=== PATIENT | male | born 1950 | race Caucasian/White ===

== ENCOUNTER 2024-03-25 01:58 | Inpatient (IN) | payer MEDICARE, MEDICAID ==
[~2024-03-25] VITALS: Ht 172.7 cm; Wt 106.1 kg
[2024-03-25 02:34] LABS: EOSINOPHILS % 4.4 % (0.0-5.0); HEMATOCRIT. 41.1 % (42.0-52.0); HEMOGLOBIN. 13.3 g/dL (14.0-18.0); MEAN CORPUSCULAR HEMOGLOBIN 27.8 pg (28.0-32.0); MEAN CORPUSCULAR HGB CONC 32.4 g/dL (31.0-37.0); MEAN CORPUSCULAR VOLUME 85.7 fL (80.0-94.0); MEAN PLATELET VOLUME 8.5 fl (7.4-10.4); MONOCYTES % 8.4 % (2.0-8.0); NEUTROPHILS % 69.2 % (40.0-76.0); PLATELET 286 x1000/uL (130-400); RED CELL DISTRIBUTION WIDTH 15.5 % (11.6-14.6); WHITE BLOOD COUNT 10.9 x1000/uL (4.5-11.0)
[2024-03-25 02:45] LABS: CHLORIDE 100 mEq/L (98-107); POTASSIUM 3.6 mEq/L (3.5-5.1); SODIUM 137 mEq/L (136-145)
[2024-03-25 02:46] LABS: CARBON DIOXIDE 27 mEq/L (21-32)
[2024-03-25 02:47] LABS: CALCIUM 9.1 mg/dL (8.7-10.4)
[2024-03-25 02:51] LABS: CREATININE 0.9 mg/dL (0.6-1.3); GLUCOSE 216 mg/dL (70-105); UREA NITROGEN BLOOD 14 mg/dL (9-23)
[2024-03-25 02:52] LABS: TROPONIN I HIGH SENSITIVITY 30 ng/L (3.0-53)
[2024-03-25 03:00] LABS: ETHANOL BLOOD < 10 mg/dL (<10)
[2024-03-25 03:10] LABS: PARTIAL THROMBOPLASTIN TIME 26.8 sec (23.4-31.0); PROTHROMBIN TIME 10.9 sec (9.6-11.0)
[2024-03-25] MEDS: ASPIRIN 325MG EC TABLET PO NR (03:39)
[2024-03-25] MEDS ORDERED: GUAIFENESIN 200MG/10ML SUGAR FREE UDC PO PRN (05:30)
[2024-03-25] MEDS ORDERED: IPRATROPIUM/ALBUTEROL 0.5-3(2.5)MG/3ML NEB HHN PRN (05:30)
[2024-03-25] MEDS ORDERED: ONDANSETRON HCL 4MG/2ML INJ IV PRN (05:30)
[2024-03-25] MEDS ORDERED: DOCUSATE SODIUM 100MG CAPSULE PO PRN (05:30)
[2024-03-25] MEDS ORDERED: CLONIDINE 0.1MG TABLET PO PRN (05:30)
[2024-03-25] MEDS ORDERED: ACETAMINOPHEN 325MG TABLET PO PRN ×2 (05:30)
[2024-03-25] MEDS ORDERED: MAGNESIUM/ALUMINUM HYDROXIDE/SIMETHICONE 30ML UDC PO PRN (05:30)
[2024-03-25] MEDS ORDERED: DEXTROSE 50% WATER 50ML SYRINGE IV PRN (05:45)
[2024-03-25] MEDS ORDERED: HYDRALAZINE 20MG/ML VIAL IV PRN (06:00)
[2024-03-25] MEDS ORDERED: NALOXONE HCL 0.4MG/ML VIAL IV PRN (06:15)
[2024-03-25 07:10] LABS: CHLORIDE 100 mEq/L (98-107); POTASSIUM 4.1 mEq/L (3.5-5.1); SODIUM 138 mEq/L (136-145)
[2024-03-25 07:11] LABS: CARBON DIOXIDE 29 mEq/L (21-32)
[2024-03-25 07:12] LABS: CALCIUM 9.1 mg/dL (8.7-10.4)
[2024-03-25] MEDS: INSULIN LISPRO 100 UNITS/ML SUBCUT SCH (07:15)
[2024-03-25 07:17] LABS: CREATININE 0.8 mg/dL (0.6-1.3); GLUCOSE 151 mg/dL (70-105); UREA NITROGEN BLOOD 16 mg/dL (9-23)
[2024-03-25 07:18] LABS: ALANINE AMINOTRANSFERASE 24 IU/L (10-49); ALBUMIN 3.9 g/dL (3.2-4.8); ASPARTATE AMINOTRANSFERASE 29 IU/L (<34)
[2024-03-25 07:19] LABS: BILIRUBIN TOTAL 0.3 mg/dL (0.1-1.0); PHOSPHORUS 4.2 mg/dL (2.5-4.9); PROTEIN TOTAL 6.2 g/dL (6.0-8.3)
[2024-03-25 07:20] LABS: CREATINE KINASE 94 IU/L (46-171)
[2024-03-25] MEDS: BLOOD SUGAR DIAGNOSTIC STRIP TEST SCH (07:23)
[2024-03-25 07:35] LABS: BG BASE EXCESS 2.8 mmol/L (-2.0-2.0); BG CARBOXYHEMOGLOBIN 0.7 % (0.5-1.5); BG DEOXYHEMOGLOBIN 3.2 % (0.0-5.0); BG FRACTION INSPIRED OXYGEN 30; BG HCO3 ACT 29.4 mmol/L (22.0-26.0); BG METHEMOGLOBIN 0.1 % (0.0-1.5); BG OXYGEN SATURATION 96.8 % (92.0-98.5); BG PCO2 53.5 mmHg (35.0-45.0); BG PH 7.358 (7.350-7.450); BG PO2 90.3 mmHg (75.0-100.0); BG SAMPLE SITE RIGHT RADIAL; BG TOTAL HEMOGLOBIN 13.2 g/dL (12.0-18.0)
[2024-03-25 08:10] LABS: TROPONIN I HIGH SENSITIVITY 67 ng/L (3.0-53)
[2024-03-25] MEDS: PANTOPRAZOLE SODIUM 40 MG/VIAL IV SCH (09:20)
[2024-03-25] MEDS: ENOXAPARIN 30MG/0.3ML SYR SUBCUT SCH (09:21)
[2024-03-25] MEDS ORDERED: NITROGLYCERIN 0.4MG TABLET SL SL PRN (14:15)
[2024-03-25] MEDS ORDERED: MORPHINE SULFATE 2 MG/ML CPJ (NOT FOR IM USE) IV PRN (14:15)
[2024-03-25 17:16] LABS: TROPONIN I HIGH SENSITIVITY 51 ng/L (3.0-53)
[2024-03-25 17:17] LABS: CREATINE KINASE 84 IU/L (46-171)
[2024-03-25 17:35] VITALS: BP 137/66; PULSE 66; RESP 20; TEMP 98.1
[2024-03-25 20:00] VITALS: BP 143/67; PULSE 71; RESP 20; TEMP 97
[2024-03-25] MEDS: HYDROCODONE/ACETAMINOPHEN 5/325MG TABLET PO PRN (20:15)
[2024-03-25] MEDS: ATORVASTATIN CALCIUM 40MG TABLET PO SCH (21:25)
[2024-03-26] VITALS (11 sets, daily range): BP systolic 114–161; BP diastolic 43–63; PULSE 60–78; RESP 18–20; TEMP 97–98.2; O2SAT 94
[2024-03-26] MEDS: IPRATROPIUM/ALBUTEROL 0.5-3(2.5)MG/3ML NEB HHN SCH (00:24)
[2024-03-26 01:10] LABS: TROPONIN I HIGH SENSITIVITY 42 ng/L (3.0-53)
[2024-03-26] MEDS: MELATONIN 3MG TABLET PO PRN (01:55)
[2024-03-26 07:41] LABS: T4 FREE 1.07 ng/dL (0.89-1.76)
[2024-03-26 07:50] LABS: BASOPHILS % 0.4 % (0.0-2.0); EOSINOPHILS % 4.7 % (0.0-5.0); HEMATOCRIT. 41.4 % (42.0-52.0); HEMOGLOBIN. 12.9 g/dL (14.0-18.0); LYMPHOCYTES % 23.7 % (20.0-50.0); MEAN CORPUSCULAR HGB CONC 31.2 g/dL (31.0-37.0); MEAN CORPUSCULAR VOLUME 86.6 fL (80.0-94.0); MEAN PLATELET VOLUME 9.2 fl (7.4-10.4); MONOCYTES % 9.9 % (2.0-8.0); NEUTROPHILS % 61.3 % (40.0-76.0); PLATELET 300 x1000/uL (130-400); RED BLOOD CELL COUNT 4.78 mill/uL (4.7-6.1); RED CELL DISTRIBUTION WIDTH 15.5 % (11.6-14.6)
[2024-03-26] MEDS: ASPIRIN 81MG TABLET PO SCH (09:32)
[2024-03-26 12:52] LABS: BG BASE EXCESS 2.3 mmol/L (-2.0-2.0); BG CARBOXYHEMOGLOBIN 0.6 % (0.5-1.5); BG FRACTION INSPIRED OXYGEN 21; BG HCO3 ACT 27.3 mmol/L (22.0-26.0); BG METHEMOGLOBIN 0.3 % (0.0-1.5); BG OXYHEMOGLOBIN 94.1 % (94.0-97.0); BG PCO2 43.9 mmHg (35.0-45.0); BG PH 7.412 (7.350-7.450); BG PO2 72.1 mmHg (75.0-100.0); BG SAMPLE SITE RIGHT RADIAL; BG TOTAL HEMOGLOBIN 13.6 g/dL (12.0-18.0); BG VENT MODE ROOM AIR
[2024-03-26] MEDS ORDERED: ASPI-1160 PO (18:47)
[2024-03-26] MEDS ORDERED: LIP40 PO (18:47)
[2024-03-27] VITALS: BP 137/46; PULSE 73; RESP 20; TEMP 97.5
[2024-03-27 04:00] VITALS: BP 130/64; PULSE 77; RESP 19; TEMP 97.6
[2024-03-27 04:50] VITALS: PULSE 74; RESP 18
[2024-03-27] MEDS: FAMOTIDINE 20MG/2ML VIAL IV SCH (08:42)
[2024-03-27 12:00] VITALS: BP 131/64; PULSE 75; RESP 20; TEMP 98.3
[2024-03-27 12:06] VITALS: BP 131/64; PULSE 75; TEMP 98.3; O2SAT 95
== END 2024-03-27 13:25 | disposition home or self-care (01) | DRG 917 ==
LOC: ER 02:02 → 5WST 03:56 → 7WST 17:37
PROVIDERS: ADMIT Preventive Medicine Clinical Informatics; ATTEND Preventive Medicine Clinical Informatics
DX: T59.811A Toxic effect of smoke, accidental (unintentional), initial encounter (principal); I50.33 Acute on chronic diastolic (congestive) heart failure; J96.01 Acute respiratory failure with hypoxia; I11.0 Hypertensive heart disease with heart failure; E78.5 Hyperlipidemia, unspecified; E11.9 Type 2 diabetes mellitus without complications; R07.89 Other chest pain; D64.9 Anemia, unspecified; G47.33 Obstructive sleep apnea (adult) (pediatric); J98.4 Other disorders of lung; Y92.89 Other specified places as the place of occurrence of the external cause; Z79.4 Long term (current) use of insulin; Z79.82 Long term (current) use of aspirin; Z79.899 Other long term (current) drug therapy; Z95.810 Presence of automatic (implantable) cardiac defibrillator
CPT/HCPCS: 36415; 36600; 71045; 80048; 80053; 80061; 80320; 82375; 82550; 82805; 82962; 83036; 83735; 83880; 84100; 84439; 84481; 84484; 85025; 93005; 93306; 93970; 94618; 94640; 94660; 99285; C9113; J1650; J1815; J3490; G0480

== ENCOUNTER 2025-01-17 15:00 | Inpatient (IN) | payer MEDICARE, MEDICAID ==
[~2025-01-17] VITALS: Ht 170.2 cm; Wt 106.1 kg
[2025-01-17 15:00] VITALS: RESP 30
[~2025-01-17 15:00] MED LIST: APIX5TAB PO; ASPI-1160 PO; CARV6.2548 PO; EMPA25TA PO; ESCI-7 PO; FURO80TA3 PO; GABA-1180 PO; IBUP-2030 MT; LIP40 PO; LISI20TA31 PO; OMEP40CA20 PO; POTA10CA93 PO; SPIR50TA5 PO
[2025-01-17] MEDS ORDERED: NITROGLYCERIN 50MG PREMIX 250 ML IV ONE (15:15)
[2025-01-17 15:39] LABS: BASOPHILS % 1.3 % (0.0-2.0); DIFFERENTIAL COMMENT 0; EOSINOPHILS % 3.5 % (0.0-5.0); HEMATOCRIT. 48.6 % (42.0-52.0); HEMOGLOBIN. 14.8 g/dL (14.0-18.0); LYMPHOCYTES % 33.4 % (20.0-50.0); MEAN CORPUSCULAR HEMOGLOBIN 26.5 pg (28.0-32.0); MEAN CORPUSCULAR HGB CONC 30.4 g/dL (31.0-37.0); MEAN CORPUSCULAR VOLUME 87.2 fL (80.0-94.0); MEAN PLATELET VOLUME 8.9 fl (7.4-10.4); MONOCYTES % 8.3 % (2.0-8.0); NEUTROPHILS % 53.5 % (40.0-76.0); PLATELET 340 x1000/uL (130-400); RED BLOOD CELL COUNT 5.57 mill/uL (4.7-6.1); RED CELL DISTRIBUTION WIDTH 16.8 % (11.6-14.6); WHITE BLOOD COUNT 11.7 x1000/uL (4.5-11.0)
[2025-01-17 15:51] LABS: CHLORIDE 106 mEq/L (98-107); POTASSIUM 4.3 mEq/L (3.5-5.1); SODIUM 140 mEq/L (136-145)
[2025-01-17 15:52] LABS: CARBON DIOXIDE 27 mEq/L (21-32)
[2025-01-17 15:53] LABS: CALCIUM 9.8 mg/dL (8.7-10.4)
[2025-01-17 15:57] LABS: CREATININE 0.8 mg/dL (0.6-1.3); GLUCOSE 305 mg/dL (70-105); UREA NITROGEN BLOOD 15 mg/dL (9-23)
[2025-01-17 16:00] LABS: TROPONIN I HIGH SENSITIVITY 38 ng/L (3.0-53)
[2025-01-17] MEDS: NITROGLYCERIN 50MG PREMIX 250 ML IV ONE (16:37)
[2025-01-17 16:54] LABS: PARTIAL THROMBOPLASTIN TIME 23.6 sec (23.4-31.0); PROTHROMBIN TIME 10.5 sec (9.6-11.0)
[2025-01-17] MEDS ORDERED: IPRATROPIUM/ALBUTEROL 0.5-3(2.5)MG/3ML NEB HHN PRN ×2 (17:00→18:45)
[2025-01-17] MEDS: FUROSEMIDE 40MG/4ML VIAL IVP NR (17:00)
[2025-01-17] MEDS ORDERED: DEXTROSE 50% WATER 50ML SYRINGE IV PRN ×2 (17:00→18:45)
[2025-01-17] MEDS: BLOOD SUGAR DIAGNOSTIC STRIP TEST SCH ×2 (17:00→21:00)
[2025-01-17 17:12] LABS: LACTIC ACID 2.6 mmol/L (0.4-2.0)
[2025-01-17 17:19] LABS: BG BASE EXCESS 0.1 mmol/L (-2.0-3.0); BG CARBOXYHEMOGLOBIN 0.9 % (0.5-1.5); BG DEOXYHEMOGLOBIN 0.6 % (0.0-5.0); BG FRACTION INSPIRED OXYGEN 60; BG HCO3 ACT 27.3 mmol/L (21.0-28.0); BG OXYGEN SATURATION 99.4 % (94.0-98.0); BG OXYHEMOGLOBIN 98.5 % (94.0-98.0); BG PCO2 54.4 mmHg (35.0-48.0); BG PH 7.318 (7.350-7.450); BG PO2 174.5 mmHg (83.0-108.0); BG SAMPLE SITE RIGHT RADIAL; BG TOTAL HEMOGLOBIN 14.4 g/dL (13.5-17.5); BG VENT MODE MASK - BIPAP
[2025-01-17] MEDS: ENOXAPARIN 30MG/0.3ML SYR SUBCUT SCH (18:29)
[2025-01-17] MEDS: INSULIN LISPRO 100 UNITS/ML SUBCUT SCH (18:40)
[2025-01-17] MEDS ORDERED: DOCUSATE SODIUM 100MG CAPSULE PO PRN (18:45)
[2025-01-17] MEDS ORDERED: CLONIDINE 0.1MG TABLET PO PRN (18:45)
[2025-01-17] MEDS ORDERED: GUAIFENESIN 200MG/10ML SUGAR FREE UDC PO PRN (18:45)
[2025-01-17] MEDS ORDERED: LORAZEPAM 0.5MG TABLET PO PRN (18:45)
[2025-01-17] MEDS ORDERED: ONDANSETRON HCL 4MG/2ML INJ IV PRN (18:45)
[2025-01-17] MEDS ORDERED: ACETAMINOPHEN 325MG TABLET PO PRN (18:45)
[2025-01-17 19:03] LABS: TROPONIN I HIGH SENSITIVITY 78 ng/L (3.0-53)
[2025-01-17 20:01] LABS: CLARITY URINE CLEAR (CLEAR); COLOR URINE YELLOW (YELLOW); GLUCOSE URINE 3+ (NEGATIVE); KETONES URINE NEGATIVE (NEGATIVE); LEUKOCYTE ESTERASE URINE NEGATIVE (NEGATIVE); NITRITE URINE NEGATIVE (NEGATIVE); OCCULT BLOOD URINE NEGATIVE (NEGATIVE); PROTEIN URINE 1+ (NEGATIVE); SPECIFIC GRAVITY URINE 1.014 (1.005-1.030); UROBILINOGEN URINE 0.2 E.U./dL (0.2-1.0)
[2025-01-17 20:19] LABS: *AMPHETAMINES SCREEN URINE NEGATIVE (NEGATIVE); *BARBITURATES SCREEN URINE NEGATIVE (NEGATIVE); *BENZODIAZEPINES SCREEN URINE NEGATIVE (NEGATIVE)
[2025-01-17 20:20] LABS: *COCAINE SCREEN URINE PRESUMPTIVE POSITIVE (NEGATIVE); CANNABINOID URINE SCREEN NEGATIVE (NEGATIVE); ECSTASY MDMA SCREEN URINE NEGATIVE (NEGATIVE); METHADONE URINE SCREEN NEGATIVE (NEGATIVE); OPIATES URINE SCREEN NEGATIVE (NEGATIVE); PHENCYCLIDINE URINE SCREEN NEGATIVE (NEGATIVE)
[2025-01-17 20:28] LABS: BACTERIA URINE NONE SEEN; RBC URINE NONE SEEN /hpf (0-2); SQUAMOUS EPITHELIAL CELL URINE RARE /lpf (RARE/1+); WBC URINE NONE SEEN /hpf (0-2)
[2025-01-17] MEDS: CARVEDILOL 12.5MG TABLET PO SCH (21:35)
[2025-01-17 21:58] VITALS: BP 139/63; PULSE 88; RESP 20; TEMP 36.6
[2025-01-17 22:00] VITALS: BP 139/63; PULSE 90; RESP 20; TEMP 36.6; O2SAT 99
[2025-01-17 22:20] VITALS: RESP 18
[2025-01-17 22:44] LABS: TROPONIN I HIGH SENSITIVITY 136 ng/L (3.0-53)
[2025-01-18] VITALS (13 sets, daily range): BP systolic 104–138; BP diastolic 59–97; PULSE 69–82; RESP 11–34; TEMP 36.1–36.6; O2SAT 92–100
[2025-01-18 05:42] LABS: CHLORIDE 104 mEq/L (98-107); SODIUM 141 mEq/L (136-145)
[2025-01-18 05:43] LABS: CARBON DIOXIDE 31 mEq/L (21-32)
[2025-01-18 05:47] LABS: CREATINE KINASE MB FRACTION 2.5 ng/mL (0.5-3.6)
[2025-01-18 05:48] LABS: CREATININE 0.8 mg/dL (0.6-1.3); UREA NITROGEN BLOOD 17 mg/dL (9-23)
[2025-01-18 05:49] LABS: CREATINE KINASE 65 IU/L (46-171)
[2025-01-18 05:57] LABS: BASOPHILS % 0.2 % (0.0-2.0); HEMATOCRIT. 39.9 % (42.0-52.0); HEMOGLOBIN. 12.9 g/dL (14.0-18.0); LYMPHOCYTES % 18.7 % (20.0-50.0); MEAN CORPUSCULAR HEMOGLOBIN 27.5 pg (28.0-32.0); MEAN CORPUSCULAR HGB CONC 32.3 g/dL (31.0-37.0); MEAN CORPUSCULAR VOLUME 85.1 fL (80.0-94.0); MEAN PLATELET VOLUME 8.6 fl (7.4-10.4); MONOCYTES % 10.5 % (2.0-8.0); NEUTROPHILS % 67.6 % (40.0-76.0); PLATELET 297 x1000/uL (130-400); RED BLOOD CELL COUNT 4.68 mill/uL (4.7-6.1); RED CELL DISTRIBUTION WIDTH 15.8 % (11.6-14.6); WHITE BLOOD COUNT 9.5 x1000/uL (4.5-11.0)
[2025-01-18 06:08] LABS: GLUCOSE 150 mg/dL (70-105); TROPONIN I HIGH SENSITIVITY 162 ng/L (3.0-53)
[2025-01-18] MEDS ORDERED: FUROSEMIDE 40MG/4 ML UDC PO SCH (09:00)
[2025-01-18] MEDS: FUROSEMIDE 40MG/4ML VIAL IVP SCH ×2 (09:55→20:26)
[2025-01-18] MEDS: PANTOPRAZOLE SODIUM 40 MG/VIAL IV SCH (09:55)
[2025-01-18] MEDS: LISINOPRIL 20MG TABLET PO SCH (09:56)
[2025-01-18] MEDS: SPIRONOLACTONE 50MG TABLET PO SCH (09:56)
[2025-01-18] MEDS: ACETAMINOPHEN 325MG TABLET PO PRN (10:06)
[2025-01-18 18:11] LABS: CREATINE KINASE MB FRACTION 1.7 ng/mL (0.5-3.6)
[2025-01-19] VITALS (9 sets, daily range): BP systolic 112–134; BP diastolic 44–66; PULSE 63–73; RESP 12–26; TEMP 36.6–36.9; O2SAT 95–97
[2025-01-19 06:57] LABS: CALCIUM 9.9 mg/dL (8.7-10.4); CARBON DIOXIDE 33 mEq/L (21-32); CHLORIDE 102 mEq/L (98-107)
[2025-01-19 06:58] LABS: POTASSIUM 4.5 mEq/L (3.5-5.1); SODIUM 141 mEq/L (136-145)
[2025-01-19 07:02] LABS: CREATININE 0.8 mg/dL (0.6-1.3); GLUCOSE 177 mg/dL (70-105)
[2025-01-19 07:03] LABS: UREA NITROGEN BLOOD 18 mg/dL (9-23)
[2025-01-19 07:04] LABS: PHOSPHORUS 3.5 mg/dL (2.5-4.9)
[2025-01-19] MEDS: INSULIN GLARGINE 100 UNITS/ML SUBCUT SCH (10:39)
== END 2025-01-19 16:40 | disposition home or self-care (01) | DRG 280 ==
LOC: ER 15:00 → 5EST 17:14 → EDBEDREQ 17:21 → EDBEDREQTM 17:21 → EDBEDREQSVC 18:48
PROVIDERS: ADMIT Hospitalist; ATTEND Hospitalist
PROC: 5A09357 Assistance with Respiratory Ventilation, Less than 24 Consecutive Hours, Continuous Positive Airway Pressure (ICD-10-PCS; principal; 2025-01-17)
PROC: 5A09357 Assistance with Respiratory Ventilation, Less than 24 Consecutive Hours, Continuous Positive Airway Pressure (ICD-10-PCS; 2025-01-18)
DX: I11.0 Hypertensive heart disease with heart failure (principal); I50.23 Acute on chronic systolic (congestive) heart failure; I21.A1 Myocardial infarction type 2; J96.01 Acute respiratory failure with hypoxia; I16.1 Hypertensive emergency; J44.1 Chronic obstructive pulmonary disease with (acute) exacerbation; E87.20 Acidosis, unspecified; I27.20 Pulmonary hypertension, unspecified; D72.829 Elevated white blood cell count, unspecified; E11.65 Type 2 diabetes mellitus with hyperglycemia; G47.33 Obstructive sleep apnea (adult) (pediatric); F14.10 Cocaine abuse, uncomplicated; I48.91 Unspecified atrial fibrillation; Z95.0 Presence of cardiac pacemaker; Z79.899 Other long term (current) drug therapy; Z79.01 Long term (current) use of anticoagulants
CPT/HCPCS: 36415; 36600; 71045; 80048; 80061; 80305; 81003; 82375; 82550; 82553; 82805; 82962; 83036; 83605; 83735; 83880; 84100; 84145; 84484; 85025; 93005; 94070; 94660; 94664; 99291; J1650; J1815; J1940; J2470; J3490